=== PATIENT | female | born 1995 | race Two or more races ===

== ENCOUNTER 2017-02-08 02:51 | Emergency (ER) | payer OTHER ==
[~2017-02-08] VITALS: Ht 152.4 cm; Wt 81.6 kg
[2017-02-08 03:01] VITALS: BP 101/65
[2017-02-08] MEDS ORDERED: ALBUTEROL FS 2.5 MG/3 ML VIAL.NEB ONE (03:29)
[2017-02-08] MEDS ORDERED: ALBUTEROL FS 2.5 MG/3 ML VIAL.NEB NEB ONE (03:30)
[2017-02-08] MEDS ORDERED: DEXAMETHASONE SOD PHOSPHATE 10 MG/ML VIAL IV ONE (03:30)
[2017-02-08] MEDS ORDERED: DEXAMETHASONE SOD PHOSPHATE 10 MG/ML VIAL ONE (03:47)
== END 2017-02-08 04:16 | disposition home or self-care (01) ==
LOC: ER 02:53
DX: J45.901 Unspecified asthma with (acute) exacerbation (principal)
CPT/HCPCS: A4606; J1100; Z7610

== ENCOUNTER 2017-05-09 01:05 | Emergency (ER) | payer OTHER ==
[~2017-05-09] VITALS: Ht 160 cm; Wt 63.5 kg
--- NOTE | 2017-05-09 01:06 | NUR ---
PT BIB SISTER, C/O SOB AND DIFFICULTY BREATHING X 1 DAY. PT AOX3 WITH SOB NOTED. HX ASTHMA. NO NVD AT THIS TIME. PT GOWNED AND PLACED ON MONITOR. WAITING FOR MD JACOBO. RT PAGED.
--- NOTE | 2017-05-09 01:12 | NUR ---
DR. TOWNSEND AT BEDSIDE. RT PAGED.
--- NOTE | 2017-05-09 01:24 | NUR ---
RT AT BEDSIDE FOR BREATHING TX.
[2017-05-09 01:31] LABS: BASOPHILS # (AUTO) 0.1 /CMM (0.0-0.2); BASOPHILS % (AUTO) 0.5 % (0.0-2.0); EOSINOPHILS # (AUTO) 0.5 /CMM (0.0-0.7); EOSINOPHILS % (AUTO) 4.2 % (0.0-6.0); HEMATOCRIT 39 % (33-45); HEMOGLOBIN 12.6 g/dL (11.5-14.8); LYMPHOCYTES # (AUTO) 3.5 /CMM (0.8-4.8); LYMPHOCYTES % (AUTO) 28.7 % (20.0-44.0); MEAN CORPUSCULAR HEMOGLOBIN 27 PG (26.0-33.0); MEAN CORPUSCULAR HGB CONC 32 g/dl (31.0-36.0); MEAN CORPUSCULAR VOLUME 82 fL (82-100); MONOCYTES # (AUTO) 0.7 /CMM (0.1-1.30); MONOCYTES % (AUTO) 5.9 % (2.0-12.0); NEUTROPHILS # (AUTO) 7.5 /CMM (1.8-8.9); NEUTROPHILS % (AUTO) 60.7 % (43.0-81.0); PLATELET COUNT (AUTO) 285 /CMM (150-450); RDW COEFFICIENT OF VARIATION 13.8 (11.5-15.0); RED BLOOD CELL COUNT(AUTO) 4.78 MIL/uL (4.0-5.2); WHITE BLOOD COUNT (AUTO) 12.3 K/uL (4.3-11.0)
[2017-05-09 01:38] LABS: CALCIUM, SERUM 8.7 mg/dL (8.5-10.1); CREATININE 0.8 mg/dL (0.6-1.3); POTASSIUM 3.9 mmol/L (3.5-5.1)
[2017-05-09 01:44] LABS: ALBUMIN 3.6 g/dL (3.4-5.0); BILIRUBIN,DIRECT 0.1 mg/dL (0.0-0.2); BILIRUBIN,TOTAL 0.6 mg/dL (0.2-1.0); TOTAL PROTEIN, SERUM 7.4 g/dL (6.4-8.2)
--- NOTE | 2017-05-09 01:55 | NUR ---
PT SIGNED WAIVER. RADIOLOGY PAGED.
--- NOTE | 2017-05-09 02:00 | NUR ---
RADIOLOGY AT BEDSIDE FOR CXR
--- NOTE | 2017-05-09 03:10 | NUR ---
Sheba gomez in ED - 05/09/[address] TOWNSEND AT BEDSIDE SPEAKING TO PT
--- NOTE | 2017-05-09 03:10 | NUR ---
DR. TOWNSEND AT BEDSIDE SPEAKING TO PT REGARDING RESULTS.
--- NOTE | 2017-05-09 03:24 | NUR ---
IV removed. Catheter intact and site benign. Pressure and 4x4 applied to site. No bleeding noted. Patient discharged to home in stable condition. Written and verbal after care instructions given. Patient verbalizes understanding of instruction. pt ambulatory with a steady gait. pt accompanied by sister
[2017-05-09 03:26] VITALS: BP 131/72
== END 2017-05-09 03:27 | disposition home or self-care (01) ==
LOC: ER 01:07
DX: J45.901 Unspecified asthma with (acute) exacerbation (principal)
CPT/HCPCS: 36415; 71010-TC; 80048-TC; 80076-TC; 85025-TC; A4606; J2930; J3475; J7030; Z7610

== ENCOUNTER 2018-02-02 03:51 | Emergency (ER) | payer OTHER ==
[~2018-02-02] VITALS: Ht 165.1 cm; Wt 84.8 kg
--- NOTE | 2018-02-02 03:56 | NUR ---
BIBSELF C/O WHEEZING AT 0330 AM. HX ASTHMA. PT STATES SHE DOES NOT HAVE AN INHALER AT THIS TIME. PT AOX3 RR EVEN AND UNLABORED. NO SOB NOTED. PT GOWNED AND PLACED ON MONITOR WAITING FOR MD JACOBO.
--- NOTE | 2018-02-02 04:00 | NUR ---
DR. CRUZ AT BEDSIDE FOR EVAL.
--- NOTE | 2018-02-02 04:04 | NUR ---
CALLED RT FOR BREATHING TX
[2018-02-02] MEDS ORDERED: ALBUTEROL FS 2.5 MG/3 ML VIAL.NEB ONE (04:07)
--- NOTE | 2018-02-02 04:11 | NUR ---
RT AT BEDSIDE FOR BREATHING TX.
[2018-02-02] MEDS ORDERED: ALBUTEROL FS 2.5 MG/3 ML VIAL.NEB NEB ONE (04:30)
[2018-02-02 04:45] VITALS: BP 109/69
== END 2018-02-02 04:45 | disposition home or self-care (01) ==
LOC: ER 03:56
DX: J45.901 Unspecified asthma with (acute) exacerbation (principal)
CPT/HCPCS: 94640 ×2; 99284; A4606; Z7610

== ENCOUNTER 2019-02-22 15:46 | Emergency (ER) | payer OTHER ==
[~2019-02-22] VITALS: Ht 152.4 cm; Wt 81.6 kg
[2019-02-22 15:52] VITALS: BP 107/68
[2019-02-22] MEDS ORDERED: TDAP [DIPH/PERTUSSIS/TET] 0.5 ML VIAL IM ONE ×2 (16:30→17:19)
[2019-02-22] MEDS ORDERED: ACETAMINOPHEN 325 MG TABLET PO ONE (16:30)
[2019-02-22] MEDS ORDERED: LIDOCAINE 1% INJ 50 ML MDV IJ ONE (16:46)
[2019-02-22] MEDS ORDERED: ACETAMINOPHEN ES 500 MG TABLET ONE (17:19)
--- NOTE | 2019-02-22 17:50 | NUR ---
Laceration repair/suture by MARTHA Richardson. For discharge-Patient discharged to home in stable condition. Written and verbal after care instructions given. Patient verbalizes understanding of instruction.
== END 2019-02-22 17:50 | disposition home or self-care (01) ==
LOC: ER 15:51
DX: S61.412A Laceration without foreign body of left hand, initial encounter (principal); J45.909 Unspecified asthma, uncomplicated; W26.0XXA Contact with knife, initial encounter; Y93.89 Activity, other specified; Y92.89 Other specified places as the place of occurrence of the external cause; Y99.8 Other external cause status
CPT/HCPCS: 12001; 90471; 90715; 99283; A6402; J3490; J7030